=== PATIENT | male | born 1985 | race Caucasian/White ===

== ENCOUNTER 2021-03-28 14:40 | Emergency (ER) | payer BC ==
--- NOTE | 2021-03-28 15:31 | EDM.PDOC ---
ED HPI GENERAL MEDICAL PROBLEM - General Chief Complaint: Bite:Animal, Insect Stated Complaint: LEFT ARM DOG BITE HAVING PAIN Time Seen by Provider: 03/28/21 15:32 Source of Information: Reports: Patient History Limitations: Reports: No Limitations - History of Present Illness INITIAL COMMENTS - FREE TEXT/NARRATIVE: HISTORY AND PHYSICAL: History of present illness: Patient is a 35-year-old male who presents to the emergency room with complaints of infected dog bite. Patient states he was bit by a dog while in [place] on Saturday, was seen in a walk-in clinic and prescribed clindamycin 300 mg four times daily. He states he took several tablets although was not consistent as he was traveling yesterday to [place]. He has taken a total of four doses. He is concerned that the wound is not improving and it is more painful to touch, redness is traveling up to the forearm and there is drainage coming from the bite bo. He has no concern for rabies, animal was up-to-date. His tetanus was updated on Saturday as well. Patient denies any fever, chills, headache, change in vision, syncope or near syncope. Denies any chest pain, back pain, shortness of breath or cough. Denies any abdominal pain, nausea, vomiting, diarrhea, constipation or dysuria. Has not noted any blood in urine or stool. Patient has been eating and drinking appropriately. Review of systems: As per history of present illness and below otherwise all systems reviewed and negative. Past medical history: As per history of present illness and as reviewed below otherwise noncontributory. Surgical history: As per history of present illness and as reviewed below otherwise noncontributory. Social history: See social history for further information Family history: As per history of present illness and as reviewed below otherwise noncontributory. Physical exam: General: Well developed and well nourished. Alert and orientated x 3. Nontoxic in appearance and in no acute distress. Vital signs are stable and have been reviewed by me. Nursing notes were reviewed. HEENT: Atraumatic, normocephalic, pupils equal and reactive bilaterally, negative for conjunctival pallor or scleral icterus, mucous membranes moist, TMs normal bilaterally, throat clear, neck supple, nontender, trachea midline. No drooling or trismus noted. No meningeal signs. No hot potato voice noted. Lungs: Clear to auscultation bilaterally. No wheezes, rales, or rhonchi. Chest nontender. Normal work of breathing, no accessory muscles used. Heart: S1S2, regular rate and rhythm without overt murmur, gallops, or rubs. No JVD. No peripheral edema Abdomen: Soft, nondistended, nontender. Normoactive bowel sounds. Negative for masses or costovertebral tenderness. Skin: 2 linear irregular bite bo to left distal forearm with swelling and diffuse erythema going from the mid hands up to the proximal forearm laterally. Remaining skin is intact, warm, dry. No lesions or rashes noted. Hematologic: No petechiae or purpra. Mucosa appropriate color and normal nail bed color and refill. Extremities: See skin for details, moves all extremities per self without difficulty or deficits, negative for cords or calf pain. Neurovascular unremarkable. Neuro: Awake, alert, oriented. Cranial nerves II through XII unremarkable. Cerebellum unremarkable. Motor and sensory unremarkable throughout. Exam nonfocal. Psychiatric: Mood and affect are appropriate. Normal thought process. Answering questions appropriately. Please note that the patient was seen and evaluated during the 2019 SARS-CoV-2 novel coronavirus pandemic period. Community viral transmission is ongoing at time of this encounter and the emergency department is operating under pandemic response procedures. Medical Decision Making: Patient is a 35-year-old male who presents to the emergency room with complaints of an infected dog bite. He states on Saturday he was prescribed antibiotics but has not taken them appropriately, took 2 doses yesterday and has had 2 doses so far today. He is concerned that the antibiotics are not working and that his dog bite is "infected". He was given ibuprofen but feels this is not helping with the pain. Due to the cellulitis associated with the dog bite I will do basic lab work. He states he would prefer to be discharged to home with further antibiotic regimen. X-ray shows soft tissue disruption and small amount of soft tissue air in the distal forearm. 1.7 mm radiopaque foreign body in the volar soft tissues at the level of the distal ulna. No acute fracture or subluxation. The wound was thoroughly cleansed and irrigated. I was able to do some basic labs which showed a slight leukocytosis. I have talked with the patient about today's findings, in addition to providing specific details for plan of care. Discussed with patient admission versus watching/waiting with his antibiotic treatment. He has only had 4 doses in total, in-depth education was given as he does not want to be admitted. He states if there is any worsening of symptoms he will return for IV antibiotics and possible admission. Reassessment at the time of disposition demonstrates that the patient is in no acute distress. The patient is stable for discharge, counseling was provided and we discussed in great detail signs and symptoms that would prompt them to return to the Emergency Department. Medication, follow up and supportive care measures were reviewed and discussed. Voices understanding and is agreeable to plan of care. Denies any further questions or concerns at this time. Diagnostics: CBC, CMP, Forearm x-ray Therapeutics: [place] Prescription: Augmentin, [place] Impression: Cellulitis Dog bite Plan: 1. You were evaluated today on an emergent basis. Your labs show an infection of the animal bite. Take the medications as directed. If your redness/swelling goes outside the margin, you need to return for IV antibiotics and possible admission. 2. You can alternate Tylenol and ibuprofen as needed for pain and fever management. 3. We encourage you to follow up with your primary care provider and/or recommended specialist in the next few days for re-evaluation and further care/management. 4. If your symptoms should worsen, new symptoms develop or any of the signs and symptoms we discussed should arise please return to the emergency room or call 911 (if needed). Definitive disposition and diagnosis as appropriate pending reevaluation and review of above. Duration: Day(s): - Related Data Allergies Allergy/AdvReac Type Severity Reaction Status Date / Time No Known Allergies Allergy Verified 03/28/21 15:47 Home Meds: Home Meds Amoxicillin/Clavulanate K [Augmentin 875-125 MG] 1 tab PO BID 7 Days #14 tablet 03/28/21 [Rx] Hydrocodone/Acetaminophen [HYDROcodone-Acetaminophen 5-325 MG] 1 - 2 tab PO Q4HR PRN #20 tablet 03/28/21 [Rx] ED ROS GENERAL - Review of Systems Review Of Systems: Comprehensive ROS is negative, except as noted in HPI. ED EXAM, SKIN/RASH Exam: See Below (See dictation) Course - Vital Signs Last Recorded V/S: Last Vital Signs Temp 97.8 F 03/28/21 14:45 Pulse 98 03/28/21 14:45 Resp 18 03/28/21 14:45 BP 140/67 03/28/21 14:45 Pulse Ox 98 03/28/21 14:45 - Orders/Labs/Meds Labs: Laboratory Tests 03/28/21 03/28/21 Range/Units 16:28 16:28 WBC 12.22 H (4.0-11.0) K/uL RBC 4.64 (4.50-5.90) M/uL Hgb 14.1 (13.0-17.0) g/dL Hct 40.7 (38.0-50.0) % MCV 87.7 (80.0-98.0) fL MCH 30.4 (27.0-32.0) pg MCHC 34.6 (31.0-37.0) g/dL RDW Std Deviation 42.2 (28.0-62.0) fl RDW Coeff of [place] 13 (11.0-15.0) % Plt Count 205 (150-400) K/uL MPV 10.20 (7.40-12.00) fL Neut % (Auto) 76.0 (48.0-80.0) % Lymph % (Auto) 11.7 L (16.0-40.0) % [place] % (Auto) 11.0 (0.0-15.0) % Eos % (Auto) 1.1 (0.0-7.0) % Baso % (Auto) 0.2 (0.0-1.5) % Neut # (Auto) 9.3 H (1.4-5.7) K/uL Lymph # (Auto) 1.4 (0.6-2.4) K/uL [place] # (Auto) 1.3 H (0.0-0.8) K/uL Eos # (Auto) 0.1 (0.0-0.7) K/uL Baso # (Auto) 0.0 (0.0-0.1) K/uL Nucleated RBC % 0.0 /100WBC Nucleated RBCs # 0 K/uL Sodium 139 (136-148) mmol/L Potassium 4.0 (3.5-5.1) mmol/L Chloride 99 (98-107) mmol/L Carbon Dioxide 28.3 (21.0-32.0) mmol/L BUN 16 (7.0-18.0) mg/dL Creatinine 1.1 (0.8-1.3) mg/dL Est Cr Clr Drug Dosing 114.16 mL/min Estimated GFR (MDRD) > 60.0 ml/min Glucose 92 (74-106) mg/dL Calcium 7.9 L (8.5-10.1) mg/dL Total Bilirubin 1.5 H (0.2-1.0) mg/dL AST 19 (15-37) IU/L ALT 25 (14-63) IU/L Alkaline Phosphatase 78 (46-116) U/L Total Protein 7.8 (6.4-8.2) g/dL Albumin 4.4 (3.4-5.0) g/dL Globulin 3.4 (2.6-4.0) g/dL Albumin/Globulin Ratio 1.3 (0.9-1.6) Meds: Medications Discontinued Medications Generic Name Dose Route Start Last Admin Trade Name Freq PRN Reason Stop Dose Admin Hydrocodone Bitart/Acetaminophen 1 tab 03/28/21 15:57 03/28/21 16:12 Acetaminophen/Hydrocodone 325-5 Mg Tab PO 03/28/21 15:58 Not Given ONETIME ONE Departure - Departure Time of Disposition: 17:30 Disposition: Admitted As Inpatient 68 Clinical Impression: Dog bite of extremity Cellulitis Qualifiers: Site of cellulitis: extremity Site of cellulitis of extremity: upper extremity Laterality: left Qualified Code(s): L03.114 - Cellulitis of left upper limb - Discharge Information *PRESCRIPTION DRUG MONITORING PROGRAM REVIEWED*: No *COPY OF PRESCRIPTION DRUG MONITORING REPORT IN PATIENT LINDA: No Prescriptions: Amoxicillin/Clavulanate K [Augmentin 875-125 MG] 1 tab PO BID 7 Days #14 tablet Hydrocodone/Acetaminophen [HYDROcodone-Acetaminophen 5-325 MG] 1 - 2 tab PO Q4HR PRN #20 tablet PRN Reason: Pain (Moderate 4-6) Instructions: Cellulitis, Adult, [id number] Referrals: PCP,None [Primary Care Provider] - Forms: ED Department Discharge Additional Instructions: The following information is given to patients seen in the emergency department who are being discharged to home. This information is to outline your options for follow-up care. We provide all patients seen in our emergency department with a follow-up referral. The need for follow-up, as well as the timing and circumstances, are variable depending upon the specifics of your emergency department visit. If you don't have a primary care physician on staff, we will provide you with a referral. We always advise you to contact your personal physician following an emergency department visit to inform them of the circumstance of the visit and for follow-up with them and/or the need for any referrals to a consulting specialist. The emergency department will also refer you to a specialist when appropriate. This referral assures that you have the opportunity for follow-up care with a specialist. All of these measure are taken in an effort to provide you with optimal care, which includes your follow-up. Under all circumstances we always encourage you to contact your private physician who remains a resource for coordinating your care. When calling for follow-up care, please make the office aware that this follow-up is from your recent emergency room visit. If for any reason you are refused follow-up, please contact the [facility] Emergency Department at and asked to speak to the emergency department charge nurse. [facility] [address] [place] [address] [place] [address] Thank you for choosing the [facility] emergency department in [place] for your medical needs today. It was a pleasure caring for you. Today you were seen in the emergency department for infection of animal bite. 1. You were evaluated today on an emergent basis. Your labs show an infection of the animal bite. Take the medications as directed. If your redness/swelling goes outside the margin, you need to return for IV antibiotics and possible admission. 2. You can alternate Tylenol and ibuprofen as needed for pain and fever management. 3. We encourage you to follow up with your primary care provider and/or recommended specialist in the next few days for re-evaluation and further care/management. 4. If your symptoms should worsen, new symptoms develop or any of the signs and symptoms we discussed should arise please return to the emergency room or call 911 (if needed). Sepsis Event Note (ED) - Focused Exam Vital Signs: Vital Signs Temp Pulse Resp BP Pulse Ox 03/28/21 14:45 97.8 F 98 18 140/67 98
[2021-03-28] MEDS ORDERED: Acetaminophen/HYDROcodone 325-5 MG Tab PO ONE (15:57)
--- NOTE | 2021-03-28 16:42 | CR ---
Indication: animal bite, swelling Technique: Two views left forearm Comparison: None Findings impression: Soft tissue disruption and small amount of soft tissue air in the distal forearm. 1.7 mm radiopaque foreign body in the volar soft tissues at the level of the distal ulna. No acute fracture or subluxation. Dictated by Shima Smith MD @ 03/28/2021 4:42:[address] Shima Smith @ Mar 28 2021 4:42PM
[2021-03-28 17:08] LABS: BLOOD UREA NITROGEN,BUN 16 mg/dL (7.0-18.0); CARBON DIOXIDE,CO2 28.3 mmol/L (21.0-32.0); CHLORIDE,CL 99 mmol/L (98-107); GLUCOSE RANDOM 92 mg/dL (74-106); SODIUM,NA 139 mmol/L (136-148)
== END 2021-03-28 17:39 | disposition home or self-care (01) ==
LOC: MW.ED 14:40
DX: S51.852A Open bite of left forearm, initial encounter (principal); L03.114 Cellulitis of left upper limb; W54.0XXA Bitten by dog, initial encounter
CPT/HCPCS: 36415; 73090-26-LT; 73090-LT; 80053; 85025; 99284-25

== ENCOUNTER 2023-05-13 06:28 | Day surgery (SDC) | payer BC ==
[~2023-05-13 06:28] MED LIST: Albuterol 0.083% 2.5 MG/3 ML Neb Soln NEB PRN; HYDROmorphone 1 MG/ML Syringe IVPUSH PRN; Lactated Ringers 1,000 ML IV SCH; Metoclopramide 10 MG/2 ML SDV IVPUSH PRN; Morphine 2 MG/ML SYRINGE IVPUSH PRN; Naloxone 0.4 MG/ML SDV IVPUSH PRN; Ondansetron 4 MG/2 ML SDV IVPUSH PRN; ceFAZolin 2 GM in Sodium Chloride 0.9% 50 ML IV ONE; droPERidol 5 MG/2 ML SDV IVPUSH PRN; fentaNYL 50 MCG/ML SDV IVPUSH PRN
[2023-05-13] MEDS ORDERED: Scopolamine 1.5 MG Transdermal Patch TOP ONE (06:30)
[2023-05-13] MEDS ORDERED: Ropivacaine 0.5% 5 MG/ML 30 ML SDV ONE (06:51)
[2023-05-13] MEDS ORDERED: Bupivacaine 0.5% 30 ML SDV ONE (07:19)
[2023-05-13] MEDS ORDERED: ceFAZolin 1 GM Vial ONE ×2 (07:19→08:10)
[2023-05-13] MEDS ORDERED: Rocuronium Bromide 50 MG/5 ML Syringe ONE (07:24)
[2023-05-13] MEDS ORDERED: Dexamethasone 4 MG/ML 5 ML MDV ONE (07:24)
[2023-05-13] MEDS ORDERED: Ketorolac 30 MG/ML SDV ONE (07:24)
[2023-05-13] MEDS ORDERED: Propofol 200 MG/20 ML SDV ONE (07:24)
[2023-05-13] MEDS ORDERED: Lidocaine 2% 5 ML SDV ONE (07:24)
[2023-05-13] MEDS ORDERED: Sugammadex Sodium 200 MG/2 ML VIAL ONE (07:24)
[2023-05-13] MEDS ORDERED: Ondansetron 4 MG/2 ML SDV ONE (07:24)
[2023-05-13] MEDS ORDERED: fentaNYL 100 MCG/2 ML SDV ONE (07:25)
[2023-05-13] MEDS ORDERED: Acetaminophen/HYDROcodone 325-5 MG Tab PO PRN (09:14)
[2023-05-13] MEDS ORDERED: Morphine 4 MG/ML Syringe IVPUSH PRN (09:14)
[2023-05-13] MEDS ORDERED: Lactated Ringers 1,000 ML IV SCH (09:15)
== END 2023-05-13 10:56 | disposition home or self-care (01) ==
LOC: MW.SDS 06:28
PROVIDERS: ATTEND Surgery
DX: K43.9 Ventral hernia without obstruction or gangrene (principal); K42.9 Umbilical hernia without obstruction or gangrene; Z87.891 Personal history of nicotine dependence; Z98.890 Other specified postprocedural states; Z79.899 Other long term (current) drug therapy; Z88.0 Allergy status to penicillin
CPT/HCPCS: 49591; 64488; A9270; J0690; J1100; J1885; J2405; J2704; J2795; J3010; J3490; J7120